=== PATIENT | male | born 1930 | race Caucasian/White ===

== ENCOUNTER → 2018-09-29 | Outpatient (CLI) | payer MEDICARE ==
[~2018-09-29] MED LIST: AEC81 PO; CELE200 PO; HYDR-4064 PO; IBUP-2353 PO; METO50TA18 PO; NIFE10 PO; TAMS-1 PO
== END | disposition home or self-care (01) ==
LOC: RAH 15:51
PROVIDERS: ATTEND Internal Medicine
DX: M47.26 Other spondylosis with radiculopathy, lumbar region (principal); M41.86 Other forms of scoliosis, lumbar region; M48.061 Spinal stenosis, lumbar region without neurogenic claudication
CPT/HCPCS: 72148